=== PATIENT | female | born 2000 | race Caucasian/White ===

== ENCOUNTER 2025-02-02 14:21 | Outpatient (REF) | payer OTHER, SELFPAY ==
--- NOTE | ~2025-02-02 | US_ITS ---
CLINICAL HISTORY: AUB Ultrasound pelvis transabdominal and transvaginal. COMPARISON: None Technique: Real time sonographic imaging, including color-flow imaging, was performed by the black top roller. Multiple traveling sales representative static images were saved for review. FINDINGS: Anteverted uterus appears normal and measures 7.6 x 3.8 x 4.7 cm. No uterine fibroids identified. Endometrium: 8 mm, normal. Right ovary appears normal and measures 2.9 x 2.4 x 2.1 cm. Normal color Doppler. No right adnexal mass identified. Normal appearing physiologic follicles/cysts. Left ovary appears normal and measures 3.0 x 2.1 x 2.1 cm. Normal color Doppler. No left adnexal mass identified. No free fluid identified in the pelvic cul-de-sac. IMPRESSION: 1. No cause for patient's symptoms identified. No evidence of ovarian torsion. This document has been electronically signed by: Miko Dewey MD on 02/05/2025 14:45:58
--- OUTSIDE RECORDS SUMMARY | 2025-02-02 16:02 | XMS_ITS | Encounter Summary ---
Author Organization [facility] Address [address] [place] [address] Care Team Providers Care Carroter Name Role Phone Sha Goodrich PA-C Primary Care Provider Reason for Visit * Reason Comments Correspondence US order faxed Encounter Details Date Type Department Care Team (Late st Contact Info) Description 01/17/2025 Interim Notes [facility] [address] [place] [phone] Antonietta Naidu [place] [address] [place], [place] [id number] Social History Tobacco Use Types Packs/Day Years Used Date Smoking Tobacco: Never Passive Smoke Exposure: Never Smokeless Tobacco: Never Alcohol Use Standard Drinks/Week Comments Never 0 (1 standard drink = 0.6 oz pur e alcohol) Social Connections Answer Date Recorded Connectedness 1 10/17/2024 Financial Resource Strain Answer Date R ecorded Financial Resource Strain 1 2023 Stress Answer Date Recorded Stress 1 10/17/2024 Physical Activity Answer Date Recorded Physical Activity 0 08/01/2024 Food Insecurity Answer Date Recorded Food 1 10/17/2024 Transportation Needs Answer Date Record ed Transportation 1 10/17/2024 Housing Stability Answer Date Recorded Housing 1 10/17/2024 Safety and Environment Answer Date Darron rded Safety 1 10/17/2024 Utilities Answer Date Recorded Utilities 1 10/17/2024 Employment Answer Date Recorded Stress 0 08/11/2024 Comments Unknown Sex and Gender Information Value Date Recorded Sex Assigned at Female 06/13/2024 10:51 AM PDT Legal Sex Female 10:50 AM PDT Gender Identity Female 06/13/2024 10:51 AM PDT Sexual Orientation Straight 06/13/2024 10 :51 AM PDT documented as of this encounter Progress Notes * Antonietta Naidu MA - 01/17/2025 4:01 PM EST [facility] order has been faxed to [facility] [address] [place] [address] Confirmation received. documented in this encounter Plan of Treatment Not on file documented as of this encounter Visit Diagnoses Not on filedocumented in this encounter Additional Health Concerns Assessment Noted Time PHQ-9 Depression Total Score: 0 01/17/20 2:43 PM PST documented as of this encounter Care Teams Carroter Relationship Specialty Start Date End Date Sha Goodrich PA-C [address] [place] [address] PCP - General FAMILY MEDICINEPEREZ 10/17/24 documented as of this encounter
--- OUTSIDE RECORDS SUMMARY | 2025-02-02 16:03 | XMS_ITS | Encounter Summary ---
Author Organization [facility] Address [address] [place] [address] Care Team Providers Care Electrostatic Powder Coating Technician Name Role Phone Sha Goodrich PA-C Primary Care Provider Encounter Details Date Type Department Care Team (Late st Contact Info) Description 01/24/2025 Interim Notes [address] [phone] [place] [address] [place] [id number] Social History Tobacco Use Types Packs/Day Years [...] as of this encounter Progress Notes * Shanna Myers MA - 01/24/2025 2:50 PM EST u/s fax to [facility] [address] [place] [address] documented in this encounter Plan of Treatment Not on file documented as of this encounter Visit Diagnoses Not on filedocumented in this encounter Additional Health Concerns Assessment Noted Time PHQ-9 Depression Total Score: 0 01/17/20 25 2:43 PM PST documented as of this encounter Care Teams Electrostatic Powder Coating Technician Relationship Specialty Start Date End Date Sha Goodrich PA-C [address] [place] [address] PCP - General FAMILY MEDICINEPEREZ 10/17/24 documented as of this encounter
--- OUTSIDE RECORDS SUMMARY | 2025-02-02 16:03 | XMS_ITS | Clinical Summary ---
Author Organization [facility] Address [address] [place] [address] Care Team Providers Care Client Care Specialist Name Role Phone Sha Goodrich PA-C Primary Care Provider Source Comments PLEASE NOTE, if this patient is a minor, it may be UNLAWFUL to discuss sensitive information that is contained in these records (such as FAMILY PLANNING, MENTAL HEALTH or SUBSTANCE ABUSE) with the minor patient's parent or other person without the patient's specific authorization.[facility] Allergies No known active allergies Medications ammonium lactate (AMLACTIN) 12 % creamIndication s:Dry skin Apply topically as needed for dry skin 140 g 2 5 Active ascorbic acid (VITAMIN C) 500 mg tabletIndicatio ns:Abnormal iron saturation Take 1 Tablet by mouth once daily 90 Tablet 1 5 Active Active Problems No known active problems Encounters Date Type Department Care Team Description 01/24/2025 Interim Notes [address] [phone] Shanna Myers MA 01/17/2025 2:20 PM EST Office Visit [address] [phone] Sha Goodrich PA-C Al Sammaraee, Hussein Annual physical exam (Primary Dx); Visit for eye and vision exam; Encounter for fertility preservation counseling; Dry skin; Prediabetes; Abnormal iron saturation 01/17/2025 Interim Notes [address] [phone] Antonietta Naidu MA 01/01/2025 2:00 PM EST Office Visit [address] [phone] Goodrich, Rosimar, PA-C Alqaisy, Rufaida Dysuria (Primary Dx); Abnormal uterine bleeding from Last 3 Months Family History Medical History Relation Name Comments Diabetes Father 68 Hypertension Father 68 Stroke Father 68 Diabetes Maternal Grandfather Hypertension Maternal Grandfather Diabetes Maternal Grandmother Hypertension Maternal Grandmother Diabetes Mother 56 Hypertension Mother 56 Diabetes Paternal Grandfather Hypertension Paternal Grandfather Diabetes Paternal Grandmother Hypertension Paternal Grandmother Relation Name Status Comments Father 68 Maternal Grandfather Maternal Grandmother Mother 56 Alive Paternal Grandfather Paternal Grandmother Social History Tobacco Use Types Packs/Day Years Used Date Smoking Tobacco: Never Passive Smoke Exposure: Never Smokeless Tobacco: Never Tobacco Cessation:Counseling Given: No Alcohol Use Standard Drinks/Week Comments Never 0 [...] Orientation Straight 06/13/2024 10 :51 AM PDT Last Filed Vital Signs Vital Sign Reading Time Taken Comments Blood Pressure 104/66 01/17/2025 2:40 PM EST Pulse 67 01/17/2025 2:40 PM EST Temperature 36.8 ??C (98.2 ??F) 01/17/2025 2:40 PM ES T Respiratory Rate 16 01/17/2025 2:40 PM EST Oxygen Saturation 99% 01/17/2025 2:40 PM EST Inhaled Oxygen Concentration - - Weight 78 kg (172 lb) 01/17/2025 2:40 PM EST Height 160 cm (5' 3 ) 01/17/2025 2:40 PM EST Body Mass Index 30.47 01/17/2025 2:40 PM EST Plan of Treatment Health Maintenance Due Date Last Done Comments HPV Screening 1999 Pap + HPV 1999 Imm-Varicella (1 of 2 - 13+ 2-dose series) 2012 Imm-HPV (1 - 3-dose series) 2014 Imm-DTaP/Tdap/Td (1 - Tdap) 2018 Cervical Cancer Screening 2020 Pap Smear 2020 Imm-Hepatitis B (2 of 2 - Cp G 2-dose series) 09/04/2024 08/07/2024 Relationship Safety Screening/Counseling 10/17/2025 10/17/2024 Diabetes Screening 01/01/2026 01/01/2025, 01/01/2025 Annual Preventive Care Visit 01/17/2026 01/17/2025 Hypertension Screening (#1) 01/17/2026 Tobacco Screening 01/17/2026 01/17/2025 Lipid Screening 01/01/2028 01/01/2025 [id number] Completed 08/07/2024 Imm-Influenza Completed 08/07/2024 HIV Screening Completed 01/01/2025 Hepatitis C Screening Completed 01/01/2025 Alcohol and Drug Screen Completed 01/17/2025, 10/17 Depression Annual Screen Completed 01/17/2025 Cervical Ablation/Cold-Knife Conization Discontinued Cervical Cryotherapy Discontinued Colposcopy Discontinued Endometrial Biopsy Discontinued Excision/Leep Discontinued HPV Genotyping Discontinued Vaginal Pap Discontinued Vulvoscopy Discontinued Procedures Procedure Name Priority Date/Time Associated Diagnosis Comments IRON PANEL W TOTAL IRON BINDING CAPACITY Routine 01/17/2025 3:15 PM EST Low hemoglobin and low hematocrit VITAMIN B12 & FOLATE Routine 01/17/2025 3:15 PM EST Low hemoglobin and low hematocrit RPR (DIAGNOSIS) WITH REFLEX TO TITER AND CONFIRMATORY TESTING Routine 01/01/2025 2:23 PM EST RFLX - REFLEXIVE URINE CULTURE Routine 01/01/2025 2:23 PM EST URINALYSIS, COMPLETE W/REFLEX TO CULTURE Routine 01/01/2025 2:23 PM EST HEPATITIS C AB W/RFLX HCV RNA, QT, RT PCR Routine 01/01/2025 2:23 PM EST Routine screening for STI (sexually transmitted infection) HIV 1/2 AG & AB W/RFLX (4TH GEN) Routine 01/01/2025 2:23 PM EST Routine screening for STI (sexually transmitted infection) THYROID PANEL WITH TSH Routine 2:23 PM EST Abnormal uterine bleeding Family history of PCOS FSH AND LH Routine 01/01/2025 2:23 PM EST Family history of PCOS LIPID PANEL Routine 01/01/2025 2:23 PM EST Family history of diabetes mellitus HEMOGLOBIN GLYCOSYLATED A1C Routine 01/01/2025 2:23 PM EST Family history of diabetes mellitus COMPREHENSIVE METABOLIC PANEL Routine 01/01/2025 2:23 PM EST Family history of diabetes mellitus BLOOD COUNT COMPLETE AUTO&AUTO DIFRNTL WBC Routine 01/01/2025 2:23 PM EST Family history of diabetes mellitus from Last 3 Months Results * (ABNORMAL) IRON PANEL W TOTAL IRON BINDING CAPACITY (01/17/2025 3:15 PM EST) IRON, TOTAL 39(L) 40 - 190 mcg/dL [facility] IRON BINDING CAPACITY 404 250 - 450 mcg/dL (calc) [facility] % SATURATION 10(L) 16 - 45 % (calc) [facility] Blood Blood / Unknown 01/17/2025 3 :15 PM EST 01/17/2025 3:15 PM EST Narrative [facility] - 01/18/2025 4:56 AM EST FASTING:YES Rosimar Goodrich PA-C LAB - BLOOD DRAW Edited Resu lt - Final Performing Organization Address [facility] de Phone Number [facility] [address] [address], [facility] [address] [address] * VITAMIN B12 & FOLATE (01/17/2025 3:15 PM EST) VITAMIN B12 301 200 - 1,100 pg/mL [facility] Comment: Please Note: Although the reference range for vitamin B12 is 200-1100 pg/mL, it has been reported that between 5 and 10% of patients with values between 200 and 400 pg/mL may experience neuropsychiatric and hematologic abnormalities due to occult B12 deficiency; less than 1% of patients with values above 400 pg/mL will have symptoms. FOLATE, SERUM 17.2 5.5 ng/mL [facility] Comment: ? Reference Range ? Low: ? <3.4 ? Borderline: ?3.4-5.4 ? Normal: ?>5.4 Blood Blood / Unknown 01/17/2025 3 :15 PM EST 01/17/2025 3:15 PM EST Narrative [facility] - 01/18/2025 4:56 AM EST FASTING:YES us Sha Goodrich PA-C LAB - BLOOD DRAW Final Resul t Performing Organization Address [facility] Co de Phone Number [facility] [address] [address], [facility] [address] [place] [address] * RPR (DIAGNOSIS) WITH REFLEX TO TITER AND CONFIRMATORY TESTING (01/01/2025 2:23 PM EST) RPR (DX) W/REFL TITER AND CONFIRMATORY TESTING NON-REACT PRISCILA NON-REACT PRISCILA [facility] Comment: No laboratory evidence of syphilis. If recent exposure is suspected, submit a new sample in 2-4 weeks. 01/01/2025 2:23 PM EST 01/01/2025 2:24 PM EST Narrative [facility] - 01/02/2025 11:57 AM EST FASTING:NO us Sha Goodrich PA-C LAB - BLOOD DRAW Final Resul t Performing Organization Address [facility]/ZIP Co de Phone Number [facility] [address] [place] [address], [facility] [address] [address] * HEPATITIS C AB W/RFLX HCV RNA, QT, RT PCR (01/01/2025 2:23 PM EST) HEPATITIS C ANTIBODY NON-REACT PRISCILA NON-REACT PRISCILA [facility] Comment: HCV antibody was non-reactive. There is no laboratory evidence of HCV infection. In most cases, no further action is required. However, if recent HCV exposure is suspected, a test for HCV RNA (test code 19731) is suggested. For additional information please refer to http://education.Gendel/faq/NGD25r6 (This link is being provided for informational/ educational purposes only.) Blood Blood / Unknown 01/01/2025 2 :23 PM EST 01/01/2025 2:24 PM EST Narrative [facility] - 01/02/2025 11:57 AM EST FASTING:NO us Sha Goodrich PA-C LAB - BLOOD DRAW Edited Resu lt - Final Performing Organization Address City/[facility]/ZIP Co de Phone Number [facility] [address] [address], [employer] [address] [address] * HIV 1/2 AG & AB W/RFLX (4TH GEN) (01/01/2025 2:23 PM EST) HIV AG/AB, 4TH GEN NON-REAC TIVE NON-REAC TIVE [facility] Comment: HIV-1 antigen and HIV-1/HIV-2 antibodies were not detected. There is no laboratory evidence of HIV infection. PLEASE NOTE: This information has been disclosed to you from records whose confidentiality may be protected by state law. ??If your state requires such protection, then the state law prohibits you from making any further disclosure of the information without the specific written consent of the person to whom it pertains, or as otherwise permitted by law. A general authorization for the release of medical or other information is NOT sufficient for this purpose. ?? For additional information please refer to http://education.Gendel/faq/IHJ012 (This link is being provided for informational/ educational purposes only.) The performance of this assay has not been clinically validated in patients less than 2 years old. Blood Blood / Unknown 01/01/2025 2 :23 PM EST 01/01/2025 2:24 PM EST Narrative [facility] - 01/02/2025 11:57 AM EST FASTING:NO Sha Goodrich PA-C LAB - BLOOD DRAW Final Resul t [facility] [address] [place] [address], [facility] [address] [place] [phone] * FSH AND LH (01/01/2025 2:23 PM EST) Pathologist [facility] FSH 3.4 1.5 - 116.3 mIU/mL [facility] Comment: ?Reference Range ? Follicular Phase ? 2.5-10.2 ? Mid-cycle Peak ? 3.1-17.7 ? Luteal Phase ? 1.5- 9.1 ? Postmenopausal ? 23.0-116.3 ? LH 4.6 0.5 - 76.3 mIU/mL [facility] Comment: ? Reference Range ? Follicular Phase ??1.9-12.5 ? Mid-Cycle Peak ?8.7-76.3 ? Luteal Phase ?0.5-16.9 ? Postmenopausal ?10.0-54.7 Blood Blood / Unknown 01/01/2025 2 :23 PM EST 01/01/2025 2:24 PM EST Narrative [facility] - 01/02/2025 11:57 AM EST FASTING:NO us Sha Goodrich PA-C LAB - BLOOD DRAW Final Resul t [facility] [address] [place] [address], [facility] [address] [place] [phone] * THYROID PANEL WITH TSH (01/01/2025 2:23 PM EST) TSH 1.04 0.40 - 4.50 mIU/L [facility] Comment: ?Reference Range ?> or = 20 Years ??0.40-4.50 ? Ranges ?First trimester ?0.26-2.66 ?Second trimester ?? 0.55-2.73 ?Third trimester ?0.43-2.91 T-3 UPTAKE 26 22 - 35 % [employer] T-4 (THYROXINE), TOTAL 9.3 5.1 - 11.9 mcg/dL [facility] FREE T4 INDEX (T7) 2.4 1.4 - 3.8 [facility] Blood Blood / Unknown 01/01/2025 2 :23 PM EST 01/01/2025 2:24 PM EST Narrative [facility] - 01/02/2025 11:57 AM EST FASTING:NO Sha Goodrich PA-C LAB - BLOOD DRAW Final Resul t [facility] [address] [address], [facility] [address] [place] [address] * URINALYSIS, COMPLETE W/REFLEX TO CULTURE (01/01/2025 2:23 PM EST) COLOR YELLOW YELLOW [facility] APPEARANCE CLEAR CLEAR [facility] SPECIFIC GRAVITY 1.022 1.001 - 1.035 [facility] URINE PH 7.0 5.0 - 8.0 [facility] GLUCOSE NEGATIVE NEGATIVE [facility] BILIRUBIN NEGATIVE NEGATIVE [facility] KETONES NEGATIVE NEGATIVE [facility] OCCULT BLOOD NEGATIVE NEGATIVE [facility] URINE PROTEIN NEGATIVE NEGATIVE [facility] NITRITE NEGATIVE NEGATIVE [facility] LEUKOCYTE ESTERASE NEGATIVE NEGATIVE [facility] URINE LEUKOCYTES NONE SEEN < OR = 5 [facility] RBC 0-2 0 - 2 /HPF [facility] SQUAMOUS EPITHELIAL CELLS 0-5 < OR = 5 /HPF [facility] BACTERIA NONE SEEN NONE SEEN [facility] HYALINE CAST NONE SEEN NONE SEEN [facility] SEE NOTE See Below [facility] Comment: This urine was analyzed for the presence of WBC, RBC, bacteria, casts, and other formed elements. Only those elements seen were reported. 01/01/2025 2:23 PM EST 01/01/2025 2:24 PM EST Narrative [facility] - 01/02/2025 11:57 AM EST FASTING:NO Sha Goodrich PA-C LAB - NO BLOOD DRAW Edited [facility] Performing Organization Address [facility] de Phone Number [facility] [address] [address], [facility] [address] [address] * RFLX - REFLEXIVE URINE CULTURE (01/01/2025 2:23 PM EST) Pathologist [facility] REFLEXIVE URINE CULTURE See Below [facility] Comment:NO CULTURE INDICATED 01/01/2025 2:23 PM EST 01/01/2025 2:24 PM EST Narrative [facility] - 01/02/2025 11:57 AM EST FASTING:NO us Sha Goodrich PA-C LAB - NO BLOOD DRAW Edited [facility] Performing Organization Address [facility] Co de Phone Number [facility] [address] [address], [facility] [address] [phone] * (ABNORMAL) BLOOD COUNT COMPLETE AUTO&AUTO DIFRNTL WBC (01/01/2025 2:23 PM EST) [facility] WHITE BLOOD CELL COUNT 7.1 3.8 - 10.8 Thousand/ uL [facility] RED BLOOD CELL COUNT 4.53 3.80 - 5.10 Million/u L [facility] HEMOGLOBIN 10.3(L) 11.7 - 15.5 g/dL [facility] [place] [facility] HEMATOCRIT 33.5(L) 35.0 - 45.0 % [facility] [place] [facility] MCV 74.0(L) 80.0 - 100.0 fL [facility] MCH 22.7(L) 27.0 - 33.0 pg [facility] MCHC 30.7(L) 32.0 - 36.0 g/dL [facility] Comment: For adults, a slight decrease in the calculated MCHC value (in the range of 30 to 32 g/dL) is most likely not clinically significant; however, it should be interpreted with caution in correlation with other red cell parameters and the patient's clinical condition. RDW 14.7 11.0 - 15.0 % [facility] PLATELET COUNT 378 140 - 400 Thousand/ uL [facility] MPV 11.9 7.5 - 12.5 fL [facility] ABSOLUTE NEUTROPHILS 4,430 1,500 - 7,800 cells/uL [facility] ABSOLUTE LYMPHOCYTES 1,825 850 - 3,900 cells/uL [facility] ABSOLUTE MONOCYTES 646 200 - 950 cells/uL [facility] ABSOLUTE EOSINOPHILS 149 15 - 500 cells/uL [facility] ABSOLUTE BASOPHILS 50 0 - 200 cells/uL [facility] NEUTROPHILS PCT 62.4 % [facility] [employer] LYMPHOCYTES 25.7 % [facility] [employer] MONOCYTES 9.1 % [facility] [employer] EOSINOPHILS 2.1 % [facility] [employer] BASOPHILS 0.7 % [employer] DIAG [employer] Blood Blood / Unknown 01/01/2025 2 :23 PM EST 01/01/2025 2:24 PM EST Narrative [facility] - 01/02/2025 11:57 AM EST FASTING:NO us Sha Goodrich PA-C LAB - BLOOD DRAW Edited Resu lt - Final [facility] [address] [place] [id number], [facility] [address] [place] [phone] * (ABNORMAL) HEMOGLOBIN GLYCOSYLATED A1C (01/01/2025 2:23 PM EST) HEMOGLOBIN A1C 5.8(H) <5.7 % of total Hgb [facility] Comment: For someone without known diabetes, a hemoglobin A1c value between 5.7% and 6.4% is consistent with prediabetes and should be confirmed with a follow-up test. For someone with known diabetes, a value <7% indicates that their diabetes is well controlled. A1c targets should be individualized based on duration of diabetes, age, comorbid conditions, and other considerations. This assay result is consistent with an increased risk of diabetes. Currently, no consensus exists regarding use of hemoglobin A1c for diagnosis of diabetes for children. Blood Blood / Unknown 01/01/2025 2 :23 PM EST 01/01/2025 2:24 PM EST Narrative [facility] - 01/02/2025 11:57 AM EST FASTING:NO us Sha Goodrich PA-C LAB - BLOOD DRAW Edited Resu lt - Final [facility] [address] [address], [facility] [address] [place] [address] * (ABNORMAL) LIPID PANEL (01/01/2025 2:23 PM EST) CHOLESTEROL, TOTAL 177 <200 mg/dL [facility] HDL CHOLESTEROL 53 > OR = 50 mg/dL [facility] TRIGLYCERIDES 88 <150 mg/dL [facility] LDL-CHOLESTEROL 106(H) 99 mg/dL (calc) [facility] Comment: Reference range: <100 Desirable range <100 mg/dL for primary prevention; ?? <70 mg/dL for patients with CHD or diabetic patients with > or = 2 CHD risk factors. LDL-C is now calculated using the Serafin-Jackson calculation, which is a validated novel method providing better accuracy than the Friedewald equation in the estimation of LDL-C. Serafin ALLEN et al. CASSIE. 2013;310(19): 9762-8672 (http://education.[employer]/faq/VZM477) CHOL/HDLC RATIO 3.3 <5.0 (calc) [facility] NON-HDL CHOLESTEROL 124 <130 mg/dL (calc) [facility] Comment: For patients with diabetes plus 1 major ASCVD risk factor, treating to a non-HDL-C goal of <100 mg/dL (LDL-C of <70 mg/dL) is considered a therapeutic option. Blood Blood / Unknown 01/01/2025 2 :23 PM EST 01/01/2025 2:24 PM EST Narrative [facility] - 01/02/2025 11:57 AM EST FASTING:NO us Sha Goodrich PA-C LAB - BLOOD DRAW Final Resul t [facility] [address] [address], [facility] [address] [place] [address] * (ABNORMAL) COMPREHENSIVE METABOLIC PANEL (01/01/2025 2:23 PM EST) GLUCOSE 102 65 - 139 mg/dL [facility] Comment: ?Non-fasting reference interval UREA NITROGEN (BUN) 10 7 - 25 mg/dL [facility] CREATININE (blood) 0.54 0.50 - 0.96 mg/dL [facility] EGFR 131 > OR = 60 mL/min/1. 73m2 [facility] BUN/CREATININE RATIO SEE NOTE: [facility] Comment: ?? Not Reported: BUN and Creatinine are within ?? reference range. ? SODIUM 133(L) 135 - 146 mmol/L [facility] POTASSIUM 4.1 3.5 - 5.3 mmol/L [facility] CHLORIDE 100 98 - 110 mmol/L [facility] CARBON DIOXIDE 27 20 - 32 mmol/L [facility] CALCIUM 9.1 8.6 - 10.2 mg/dL [facility] PROTEIN, TOTAL 7.8 6.1 - 8.1 g/dL [facility] ALBUMIN 4.2 3.6 - 5.1 g/dL [facility] GLOBULIN 3.6 1.9 - 3.7 g/dL (calc) [facility] ALBUMIN/GLOBULI N RATIO 1.2 1.0 - 2.5 (calc) [facility] BILIRUBIN, TOTAL 0.3 0.2 - 1.2 mg/dL [facility] ALKALINE PHOSPHATASE 66 31 - 125 U/L [facility] AST 13 10 - 30 U/L [facility] ALT 11 6 - 29 U/L [facility] Blood Blood / Unknown 01/01/2025 2 :23 PM EST 01/01/2025 2:24 PM EST Narrative [facility] - 01/02/2025 11:57 AM EST FASTING:NO Sha Goodrich PA-C LAB - BLOOD DRAW Edited Resu lt - Final [facility] [address] [address], [facility] [address] [place] [address] from Last 3 Months Insurance [employer] Member Subscriber Plan / Payer (Ef fective 2024-Present) Name:Pat Gomes Relation to Subscriber:Self Name:Pat Gomes Payer ID:[id number] Type:Indemnity Address: [facility] [address] [place] [address] Care Teams Client Care Specialist Relationship Specialty Start Date End Date Sha Goodrich PA-C [address] [place] [address] PCP - General [facility]ILY MEDICINE[facility]EREZ 10/17/24
--- OUTSIDE RECORDS SUMMARY | 2025-02-02 16:03 | XMS_ITS | Encounter Summary ---
Author Organization [facility] Address [address] [place] [address] Care Team Providers Care Traffic Clerk Name Role Phone Sha Goodrich PA-C Primary Care Provider + [phone] Reason for Referral * Nutrition (Routine) - New Request Specialty Diagnoses / Procedures Referred By Elizabeth stallings Referred To Contact Nutrition Diagnoses Prediabetes Sha Goodrich PA-C [address] [place] [address] Phone: tel: fax: Luis A Murphy, [address] [place] [address] Phone: tel: fax: Referral ID Status Reason Start Date Expiration Date Visits Requested Visits Authorized [id number] New Request Specialty Services Required 01/17/2025 01/17/2026 1 1 * Gynecology (Routine) - Denied Specialty Diagnoses / Procedures Referred By Elizabeth stallings Referred To Contact Gynecology / Family Practice Diagnoses Encounter for fertility preservation counseling Sha Goodrich PA-C [address] [place] [address] Phone: tel: fax: [address] [address] Phone: tel: fax: Referral ID Status Reason Start Date Expiration Date V isits Requested Visits Authorized [id number] Denied Continuity of Care 01/17/2025 01/17/2026 1 0 Comments 24 yo F trying to conceive with male partner since March of last year. Would like to speak with someone about fertility. * Ophthalmology (Routine) - Pending Review Specialty Diagnoses / Procedures Referred By Elizabeth stallings Referred To Contact Diagnoses Visit for eye and vision exam Sha Goodrich PA-C [address] [place] [address] Phone: tel: fax: OTHER Referral ID Status Reason Start Date Expiration Date Visits Requested Visits Authorized [id number] Pending Review Specialty Services Required 01/17/2025 01/17/2026 1 1 Reason for Visit * Reason Comments Complete Physical Exam 24 y/o female cpe with Encounter Details Date Type Department Care Team ([facility] st Contact Info) Description 01/17/2025 2:20 PM EST Office Visit [address] [address] Sha Goodrich [facility]-C [address] [facility] 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 Health Maintenance: Patient's last menstrual period was 12/23/2024 (exact date). Ophthalmology: ref made Dentist: advised to make appt here Allergies: No Known Allergies There is no problem list on file for this patient. No past medical history on file. Past Surgical History: Procedure Laterality Date EYE SURGERY 2022 lazy eye Family History Problem Relation Name Age of Onset Hypertension Mother 56 Diabetes Mother 56 Hypertension Father 68 Stroke Father 68 Diabetes Father 68 Hypertension Maternal Grandmother Diabetes Maternal Grandmother Hypertension Maternal Grandfather Diabetes Maternal Grandfather Hypertension Paternal Grandmother Diabetes Paternal Grandmother Hypertension Paternal Grandfather Diabetes Paternal Grandfather No current outpatient medications on file prior to visit. No current facility-administered medications on file prior to visit. Review of Systems - Additional review of systems: See HPI, LOLITA remainders otherwise negative or non-contributory. OBJECTIVE: Vitals: 01/17/25 1440 BP: 104/66 Pulse: 67 Resp: 16 Temp: 98.2 ??F (36.8 ??C) TempSrc: Oral SpO2: 99% Weight: 172 lb (78 kg) Height: 5' 3 (1.6 m) Body mass index is 30.47 kg/m??. Physical Exam Constitutional: General: She is not in acute distress. HENT: Right Ear: Tympanic membrane, ear canal and external ear normal. Left Ear: Tympanic membrane, ear canal and external ear normal. Mouth/Throat: Mouth: Mucous membranes are moist. Pharynx: Oropharynx is clear. Eyes: Extraocular Movements: Extraocular movements intact. Conjunctiva/sclera: Conjunctivae normal. Pupils: Pupils are equal, round, and reactive to light. Neck: Thyroid: No thyroid mass, thyromegaly or thyroid tenderness. Cardiovascular: Rate and Rhythm: Normal rate and regular rhythm. Pulmonary: Effort: Pulmonary effort is normal. No respiratory distress. Breath sounds: Normal breath sounds. Abdominal: General: Bowel sounds are normal. Palpations: Abdomen is soft. There is no mass. Tenderness: There is no abdominal tenderness. Musculoskeletal: General: No swelling or tenderness. Cervical back: Neck supple. No tenderness. Lymphadenopathy: Cervical: No cervical adenopathy. Neurological: Mental Status: She is alert and oriented to person, place, and time. LABS: Office Visit on 10/17/2024 Component Date Value Ref Range Status WHITE BLOOD CELL COUNT 01/01/2025 7.1 3.8 - 10.8 Thousand/uL Final RED BLOOD CELL COUNT 01/01/2025 4.53 3.80 - 5.10 Million/uL Final HEMOGLOBIN 01/01/2025 10.3 (L) 11.7 - 15.5 g/dL Final HEMATOCRIT 01/01/2025 33.5 (L) 35.0 - 45.0 % Final MCV 01/01/2025 74.0 (L) 80.0 - 100.0 fL Final MCH 01/01/2025 22.7 (L) 27.0 - 33.0 pg Final MCHC 01/01/2025 30.7 (L) 32.0 - 36.0 g/dL Final RDW 01/01/2025 14.7 11.0 - 15.0 % Final PLATELET COUNT 01/01/2025 378 140 - 400 Thousand/uL Final MPV 01/01/2025 11.9 7.5 - 12.5 fL Final ABSOLUTE NEUTROPHILS 01/01/2025 4,430 1,500 - 7,800 cells/uL Final ABSOLUTE LYMPHOCYTES 01/01/2025 1,825 850 - 3,900 cells/uL Final ABSOLUTE MONOCYTES 01/01/2025 646 200 - 950 cells/uL Final ABSOLUTE EOSINOPHILS 01/01/2025 149 15 - 500 cells/uL Final ABSOLUTE BASOPHILS 01/01/2025 50 0 - 200 cells/uL Final NEUTROPHILS PCT 01/01/2025 62.4 % Final LYMPHOCYTES 01/01/2025 25.7 % Final MONOCYTES 01/01/2025 9.1 % Final EOSINOPHILS 01/01/2025 2.1 % Final BASOPHILS 01/01/2025 0.7 % Final GLUCOSE 01/01/2025 102 65 - 139 mg/dL Final UREA NITROGEN (BUN) 01/01/2025 10 7 - 25 mg/dL Final CREATININE (blood) 01/01/2025 0.54 0.50 - 0.96 mg/dL Final EGFR 01/01/2025 131 > OR = 60 mL/min/1.73m2 Final BUN/CREATININE RATIO 01/01/2025 SEE NOTE: 6 - 22 Final SODIUM 01/01/2025 133 (L) 135 - 146 mmol/L Final POTASSIUM 01/01/2025 4.1 3.5 - 5.3 mmol/L Final CHLORIDE 01/01/2025 100 98 - 110 mmol/L Final CARBON DIOXIDE 01/01/2025 27 20 - 32 mmol/L Final CALCIUM 01/01/2025 9.1 8.6 - 10.2 mg/dL Final PROTEIN, TOTAL 01/01/2025 7.8 6.1 - 8.1 g/dL Final ALBUMIN 01/01/2025 4.2 3.6 - 5.1 g/dL Final GLOBULIN 01/01/2025 3.6 1.9 - 3.7 g/dL (calc) Final ALBUMIN/GLOBULIN RATIO 01/01/2025 1.2 1.0 - 2.5 (calc) Final BILIRUBIN, TOTAL 01/01/2025 0.3 0.2 - 1.2 mg/dL Final ALKALINE PHOSPHATASE 01/01/2025 66 31 - 125 U/L Final AST 01/01/2025 13 10 - 30 U/L Final ALT 01/01/2025 11 6 - 29 U/L Final HEMOGLOBIN A1C 01/01/2025 5.8 (H) <5.7 % of total Hgb Final CHOLESTEROL, TOTAL 01/01/2025 177 <200 mg/dL Final HDL CHOLESTEROL 01/01/2025 53 > OR = 50 mg/dL Final TRIGLYCERIDES 01/01/2025 88 <150 mg/dL Final LDL-CHOLESTEROL 01/01/2025 106 (H) 99 mg/dL (calc) Final CHOL/HDLC RATIO 01/01/2025 3.3 <5.0 (calc) Final NON-HDL CHOLESTEROL 01/01/2025 124 <130 mg/dL (calc) Final CHLAMYDIA TRACHOMATIS RNA, TMA 10/24/2024 NOT DETECTED NOT DETECTED Final NEISSERIA GONORRHOEAE RNA, TMA 10/24/2024 NOT DETECTED NOT DETECTED Final FSH 01/01/2025 3.4 1.5 - 116.3 mIU/mL Final LH 01/01/2025 4.6 0.5 - 76.3 mIU/mL Final TSH 01/01/2025 1.04 0.40 - 4.50 mIU/L Final T-3 UPTAKE 01/01/2025 26 22 - 35 % Final T-4 (THYROXINE), TOTAL 01/01/2025 9.3 5.1 - 11.9 mcg/dL Final FREE T4 INDEX (T7) 01/01/2025 2.4 1.4 - 3.8 Final URINE HCG 10/17/2024 NEGATIVE NEGATIVE Final INTERNAL CONTROL 10/17/2024 PASS PASS Final HIV AG/AB, 4TH GEN 01/01/2025 NON-REACTIVE NON-REACTIVE Final HEPATITIS C ANTIBODY 01/01/2025 NON-REACTIVE NON-REACTIVE Final COLOR 01/01/2025 YELLOW YELLOW Final APPEARANCE 01/01/2025 CLEAR CLEAR Final SPECIFIC GRAVITY 01/01/2025 1.022 1.001 - 1.035 Final URINE PH 01/01/2025 7.0 5.0 - 8.0 Final GLUCOSE 01/01/2025 NEGATIVE NEGATIVE Final BILIRUBIN 01/01/2025 NEGATIVE NEGATIVE Final KETONES 01/01/2025 NEGATIVE NEGATIVE Final OCCULT BLOOD 01/01/2025 NEGATIVE NEGATIVE Final URINE PROTEIN 01/01/2025 NEGATIVE NEGATIVE Final NITRITE 01/01/2025 NEGATIVE NEGATIVE Final LEUKOCYTE ESTERASE 01/01/2025 NEGATIVE NEGATIVE Final URINE LEUKOCYTES 01/01/2025 NONE SEEN < OR = 5 Final RBC 01/01/2025 0-2 0 - 2 /HPF Final SQUAMOUS EPITHELIAL CELLS 01/01/2025 0-5 < OR = 5 /HPF Final BACTERIA 01/01/2025 NONE SEEN NONE SEEN Final HYALINE CAST 01/01/2025 NONE SEEN NONE SEEN Final SEE NOTE 01/01/2025 See Below Final REFLEXIVE URINE CULTURE 01/01/2025 See Below Final RPR (DX) W/REFL TITER AND CONFIRMA* 01/01/2025 NON-REACTIVE NON-REACTIVE Final Mental Health: 01/17/2025 2:43 PM Little interest or pleasure in doing things Not at all Feeling down, depressed or hopeless [include irritable if under 18] Not at all Trouble falling or staying asleep, or sleeping too much Not at all Feeling tired or having little energy Not at all Poor appetite or overeating Not at all Feeling bad about yourself - or that you are a failure or have let yourself or your family down Notat all Trouble concentrating on things like school work, reading or watching TV? Not at all Moving or speaking so slowly that other people could have noticed? Or the opposite - being so fidgety or restless that you have been moving around a lot more than usual Not at all Thoughts you would be better off or of hurting yourself in some way Not at all If you checked off any problems, how difficult have these problems made it for you to do your work,take care of things at home, or get along with other people? Not difficult at all PHQ-9 Total Score (Auto Calculated) 0 Depression Severity: None-minimal ASSESSMENT & PLAN: Pat Gomes is a 24 year old female patient, who was seen today for a Complete Physical Exam.Ref made to nutrition. Advised to call with any questions or cocnerns. Weight management:BMI follow up plan: The patient was counseled regarding nutrition and physical activity. Counseled for healthy lifestyle, dietary habits, physical activity and regular exercise.Encouraged to make healthier eating choices with less refined carbs and smaller portions along with regular exercise 3-4x/week for at least 20-30min. Avoid fried foods, oily foods and limit foods rich in dense calories. Increase fruits and vegetables. Pat was seen today for complete physical exam. Diagnoses and all orders for this visit: Annual physical exam Visit for eye and vision exam - REFERRAL TO OPHTHALMOLOGY Encounter for fertility preservation counseling - REFERRAL TO GYNECOLOGY Dry skin - ammonium lactate (AMLACTIN) 12 % cream; Apply topically as needed for dry skin Prediabetes - REFERRAL TO NUTRITION Return in about 4 months (around 05/17/2025) for pre-DM. documented in this encounter Miscellaneous Notes * Patient Instructions - Sha Goodrich PA-C - 01/17/2025 3:01 PM EST If you are not able to keep your appointment please call 24-48 hours before your appointment to cancel or reschedule. documented in this encounter Plan of Treatment Scheduled Orders Name Type Priority Associated Diagnoses Orde r Schedule IRON PANEL W TOTAL IRON BINDING CAPACITY Lab Routine Abnormal iron saturation Ordered: 01/29/2025 Scheduled Referrals Name Type Priority Associated Diagnoses Orde r Schedule REFERRAL TO OPHTHALMOLOGY Referral Routine Visit for eye and vision exam Ordered: 01/17/2025 REFERRAL TO GYNECOLOGY Referral Routine Encounter for fertility preservation counseling Ordered: 01/17/2025 REFERRAL TO NUTRITION Referral Routine Prediabetes Ordered: 01/17/2025 documented as of this encounter Visit Diagnoses Diagnosis Annual physical exam- Primary Routine general medical examination at a health care facility Visit for eye and vision exam Examination of eyes and vision Encounter for fertility preservation counseling Dry skin Other specified disease of sebaceous glands Prediabetes Other abnormal glucose Abnormal iron saturation Other abnormal blood chemistry documented in this encounter Additional Health Concerns Assessment Noted Time PHQ-9 Depression Total Score: 0 01/17/20 25 2:43 PM PST documented as of this encounter Care Teams Traffic Clerk Relationship Specialty Start Date End Date Sha Goodrich PA-C [address] [place] [address] PCP - General [facility] 10/17/24 documented as of this encounter
--- OUTSIDE RECORDS SUMMARY | 2025-02-02 16:03 | XMS_ITS | Encounter Summary ---
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 Role Phone Sha Goodrich PA-C Primary Care Provider Reason for Visit * Reason Comments Establish Care New pt , c/o random mookie , foot pain and irregular period Encounter Details Date Type Department Care Team (Late st Contact Info) Description 10/17/2024 1:40 PM EST Office Visit [address] [phone] Sha Goodrich PA-C [address] [place] [address] [phone] Kirk Bess [address] [place] [address] [phone] Abnormal uterine bleeding (Primary Dx); Family history of diabetes mellitus; Routine screening for STI (sexually transmitted infection); Immunization due; Family history of PCOS; Low hemoglobin and low hematocrit Social History Tobacco Use Types Packs/Day Years [...] Orientation Straight 06/13/2024 10 :51 AM PDT COVID-19 Exposure Response Date Recorded In the last 10 days, have yo u been in contact with someone who was confirmed or suspected to have Coronavirus/COVID-19? No / Unsure 10/17/2024 1:44 PM EST documented as of this encounter Last Filed Vital Signs Vital Sign Reading Time Taken Comments Blood Pressure 100/60 10/17/2024 1:55 PM EST Pulse 87 10/17/2024 1:55 PM EST Temperature 36.3 ??C (97.3 ??F) 10/17/2024 1:55 PM ES T Respiratory Rate 16 10/17/2024 1:55 PM EST Oxygen Saturation 99% 10/17/2024 1:55 PM EST Inhaled Oxygen Concentration - - Weight 71.7 kg (158 lb) 10/17/2024 1:55 PM EST Height 154.9 cm (5' 1 ) 10/17/2024 1:55 PM EST Body Mass Index 29.85 10/17/2024 1:55 PM EST documented in this encounter Progress Notes * Sha Goodrich PA-C - 01/14/2025 6:58 PM ESTAddended by: SHA GOODRICH on: 01/14/2025 06:58 PM Modules accepted: Orders * Sha Goodrich PA-C - 10/17/2024 2:08 PM EST Pat Gomes is a 24 year old female presenting for a new patient visit. Patient has been trying to have kids since end of February, worried because mom had PCOS and took 2 years to get . Explained it's only been a few months and it can take a while to become . Patient reports irregular periods with a lot of cramping. No hirsutism. Cramping and heaviness since becoming sexually active. Heaviness comes and goes. Cramping is always there, feels like someone is squeezing. Unable to bend it's very uncomfortable. Nov LMP, 7 days. States gets period every month but one month only had period for 2 days. Has done tests and they've been negative. Went to urgent care here and testing was all negative. She is getting periods early every month now since becoming sexually active. Current complaints: Chief Complaint Patient presents with [facility] Care New pt , c/o random mookie , foot pain and irregular period Last comprehensive health eval was n/a new to [place] in February Drug allergies: No Known Allergies Medical hx: There is no problem list on file for this patient. Current medications: No current outpatient medications on file prior to visit. No current facility-administered medications on file prior to visit. Specialists: none Surgical hx: Past Surgical History: Procedure Laterality Date EYE SURGERY 2022 lazy eye Hospitalizations within last year: for pelvic pain Sexual health: Social History Substance and Sexual Activity Sexual Activity Yes Partners: Male Comment: with Obstetrical hx: Obstetric History T0 P0 TAB0 SAB0 E0 M0 L0 Mental health: 10/17/2024 1:55 PM How many times in the past year have you had 4 or more drinks in a day? NONE How many times in the past year have you used a recreational drug or used a prescription medicationfor nonmedical reasons? NONE Did patient decline PHQ screening? No Little interest or pleasure in doing things Not at all Feeling down, depressed or hopeless [include irritable if under 18] Not at all PHQ2 Score 0 Little interest or pleasure in doing things [...] Score (Auto Calculated) 0 Depression Severity: None-minimal Family medical hx: Family History Problem Relation Name Age of Onset Hypertension Mother 56 Diabetes Mother 56 Hypertension Father 68 Stroke Father 68 Diabetes Father 68 Hypertension Maternal Grandmother Diabetes Maternal Grandmother Hypertension Maternal Grandfather Diabetes Maternal Grandfather Hypertension Paternal Grandmother Diabetes Paternal Grandmother Hypertension Paternal Grandfather Diabetes Paternal Grandfather Smoking hx: Tobacco History Tobacco Use Smoking Status Never Passive exposure: Never Smokeless Tobacco Never Alcohol hx: Social History Substance and Sexual Activity Alcohol Use Never Other drug hx: Social History Substance and Sexual Activity Drug Use Never Vitals: 10/17/2024 1:55 PM Weight 158 lb (71.7 kg) BP 100/60 Body mass index is 29.85 kg/m??. AP: Pat Gomes is a 24 year old female presenting for a new patient visit. Educated on menses, cycles and fertility expectations. Educated on ideal time to conceive and good practices to achieve conception. Educated on PCOS as well. Patient remains anxious about conception. Labs ordered, advisedfasting. US pelvis ordered as well. Advised to call with any questions or concerns. N93.9 Abnormal uterine bleeding (primary encounter diagnosis) Plan : US PELVIC COMPLETE & TRANSVAG THYROID PANEL WITH TSH HCG URINE MCKESSON (POCT) Z83.3 Family history of diabetes mellitus Plan : BLOOD COUNT COMPLETE AUTO&AUTO DIFRNTL WBC COMPREHENSIVE METABOLIC PANEL HEMOGLOBIN GLYCOSYLATED A1C LIPID PANEL Z11.3 Routine screening for STI (sexually transmitted infection) Plan : C TRACHOMATIS/N GONORRHOEAE RNA,TMA HIV 1/2 AG & AB W/RFLX (4TH GEN) HEPATITIS C AB W/RFLX HCV RNA, QT, RT PCR Z23 Immunization due -refused vaccines Z84.2 Family history of PCOS Plan : US PELVIC COMPLETE & TRANSVAG FSH AND LH THYROID PANEL WITH TSH No follow-ups on file. documented in this encounter Miscellaneous Notes * Result Encounter Note - Sha Goodrich PA-C - 01/29/2025 9:35 PM EST Please let pt know that iron saturation is low at 10%. Rx sent for iron and vitamin C to be taken together for better absorption. Thanks! * Result Encounter Note - Sha Goodrich PA-C - 01/14/2025 6:58 PM EST Please let pt know hemoglobin and hematocrit are a little low. Will check b12/folate/iron. Please have pt come in. A1C at 5.8. Prediabetic. Will monitor for now and work on lifestyle changes with healthy diet and exercise. FSH, LH, thyroid all normal. Please let pt know. Thanks! * Result Encounter Note - Ernestine Wells NP - 10/24/2024 11:15 AM EST C/trac/gn neg * Patient Instructions - Sha Goodrich PA-C - 10/17/2024 2:18 PM EST If you are not able to keep your appointment please call 24-48 hours before your appointment to cancel or reschedule. documented in this encounter Plan of Treatment Not on file documented as of this encounter Procedures Procedure Name Priority Date/Time Associated Diagnosis Comments IRON PANEL W TOTAL IRON BINDING CAPACITY Routine 01/17/2025 3:15 PM EST Low hemoglobin and low hematocrit VITAMIN B12 & FOLATE Routine 01/17/2025 3:15 PM EST Low hemoglobin and low hematocrit RPR (DIAGNOSIS) WITH REFLEX TO TITER AND CONFIRMATORY TESTING Routine 01/01/2025 2:23 PM EST HEPATITIS C AB W/RFLX HCV RNA, QT, RT PCR Routine 01/01/2025 2:23 PM EST Routine screening for STI (sexually transmitted infection) HIV 1/2 AG & AB W/RFLX (4TH GEN) Routine 01/01/2025 2:23 PM EST Routine screening for STI (sexually transmitted infection) FSH AND LH Routine 01/01/2025 2:23 PM EST Family history of PCOS THYROID PANEL WITH TSH Routine 2:23 PM EST Abnormal uterine bleeding Family history of PCOS URINALYSIS, COMPLETE W/REFLEX TO CULTURE Routine 01/01/2025 2:23 PM EST RFLX - REFLEXIVE URINE CULTURE Routine 01/01/2025 2:23 PM EST BLOOD COUNT COMPLETE AUTO&AUTO DIFRNTL WBC Routine 01/01/2025 2:23 PM EST Family history of diabetes mellitus HEMOGLOBIN GLYCOSYLATED A1C Routine 01/01/2025 2:23 PM EST Family history of diabetes mellitus LIPID PANEL Routine 01/01/2025 2:23 PM EST Family history of diabetes mellitus COMPREHENSIVE METABOLIC PANEL Routine 01/01/2025 2:23 PM EST Family history of diabetes mellitus C TRACHOMATIS/N GONORRHOEAE RNA,TMA Routine 10/24/2024 8:54 AM EST Routine screening for STI (sexually transmitted infection) HCG URINE MCKESSON (POCT) Routine 10/17/2024 2:56 PM EST Abnormal uterine bleeding documented in this encounter Results * (ABNORMAL) IRON PANEL W TOTAL IRON BINDING CAPACITY (01/17/2025 3:15 PM EST) [facility] IRON, TOTAL 39(L) 40 - 190 mcg/dL [facility] IRON BINDING CAPACITY 404 250 - 450 mcg/dL (calc) [facility] % SATURATION 10(L) 16 - 45 % (calc) [facility] Blood Blood / Unknown 01/17/2025 3 :15 PM EST 01/17/2025 3:15 PM EST Narrative [facility] - 01/18/2025 4:56 AM EST FASTING:YES Sha Goodrich PA-C LAB - BLOOD DRAW Edited Resu lt - Final [facility] [address] [address], [facility] [address] [place] [address] * VITAMIN B12 & FOLATE (01/17/2025 3:15 PM EST) VITAMIN B12 301 200 - 1,100 pg/mL [facility] Comment: Please Note: Although the reference range for vitamin B12 is 200-1100 pg/mL, it has been reported that between 5 and 10% of patients with values between 200 and 400 pg/mL may experience neuropsychiatric and hematologic abnormalities due to occult B12 deficiency; less than 1% of patients with values above 400 pg/mL will have symptoms. FOLATE, SERUM 17.2 5.5 ng/mL [facility] Comment: ? Reference Range ? Low: ? <3.4 ? Borderline: ?3.4-5.4 ? Normal: ?>5.4 Blood Blood / Unknown 01/17/2025 3 :15 PM EST 01/17/2025 3:15 PM EST Narrative [facility] - 01/18/2025 4:56 AM EST FASTING:YES [employer] ORTEZ[employer] LAB - BLOOD DRAW Final Resul t Performing Organization Address [facility]/ZIP Co de Phone Number [facility] [address] [address], [employer] [address] [address] * RPR (DIAGNOSIS) WITH REFLEX TO TITER AND CONFIRMATORY TESTING (01/01/2025 2:23 PM EST) RPR (DX) W/REFL TITER AND CONFIRMATORY TESTING NON-REACT PRISCILA NON-REACT PRISCILA [facility] Comment: No laboratory evidence of syphilis. If recent exposure is suspected, submit a new sample in 2-4 weeks. 01/01/2025 2:23 PM EST 01/01/2025 2:24 PM EST Narrative [employer] [facility] - 01/02/2025 11:57 AM EST FASTING:NO [employer]TE[employer] LAB - BLOOD DRAW Final Resul t Performing Organization Address [facility] Co de Phone Number [facility] [address] [address], [employer] [address] [address] * RFLX - REFLEXIVE URINE CULTURE (01/01/2025 2:23 PM EST) REFLEXIVE URINE CULTURE See Below [employer] [facility] Comment:NO CULTURE INDICATED 01/01/2025 2:23 PM EST 01/01/2025 2:24 PM EST Narrative [facility] - 01/02/2025 11:57 AM EST FASTING:NO [employer] TODD-C LAB - NO BLOOD DRAW Edited R esult - Final Performing Organization Address [facility]/ZIP Co de Phone Number [facility] [address] [address], [employer] [address] [phone] * URINALYSIS, COMPLETE W/REFLEX TO CULTURE (01/01/2025 2:23 PM EST) COLOR YELLOW YELLOW [facility] APPEARANCE CLEAR CLEAR [facility] SPECIFIC GRAVITY 1.022 1.001 - 1.035 [facility] URINE PH 7.0 5.0 - 8.0 [facility] GLUCOSE NEGATIVE NEGATIVE [facility] BILIRUBIN NEGATIVE NEGATIVE [facility] KETONES NEGATIVE NEGATIVE [facility] OCCULT BLOOD NEGATIVE NEGATIVE [facility] URINE PROTEIN NEGATIVE NEGATIVE [facility] NITRITE NEGATIVE NEGATIVE [facility] LEUKOCYTE ESTERASE NEGATIVE NEGATIVE [facility] URINE LEUKOCYTES NONE SEEN < OR = 5 [facility] RBC 0-2 0 - 2 /HPF [facility] SQUAMOUS EPITHELIAL CELLS 0-5 < OR = 5 /HPF [facility] BACTERIA NONE SEEN NONE SEEN [facility] HYALINE CAST NONE SEEN NONE SEEN [facility] SEE NOTE See Below [facility] Comment: This urine was analyzed for the presence of WBC, RBC, bacteria, casts, and other formed elements. Only those elements seen were reported. 01/01/2025 2:23 PM EST 01/01/2025 2:24 PM EST Narrative [facility] - 01/02/2025 11:57 AM EST FASTING:NO Sha Goodrich PA-C LAB - NO BLOOD DRAW Edited R esult - Final [facility] [address] [address], [facility] [address] [address] * HEPATITIS C AB W/RFLX HCV RNA, QT, RT PCR (01/01/2025 2:23 PM EST) HEPATITIS C ANTIBODY NON-REACT PRISCILA NON-REACT PRISCILA [facility] Comment: HCV antibody was non-reactive. There is no laboratory evidence of HCV infection. In most cases, no further action is required. However, if recent HCV exposure is suspected, a test for HCV RNA (test code 66584) is suggested. For additional information please refer to http://education.Globial/faq/LFW28v8 (This link is being provided for informational/ educational purposes only.) Blood Blood / Unknown 01/01/2025 2 :23 PM EST 01/01/2025 2:24 PM EST Narrative [employer] [facility] - 01/02/2025 11:57 AM EST FASTING:NO Hermanangie Goodrich PA-C LAB - BLOOD DRAW Edited Resu lt - Final Performing Organization Address [facility] de Phone Number [facility] [address] [address], [employer] [address] [address] * HIV 1/2 AG & AB W/RFLX (4TH GEN) (01/01/2025 2:23 PM EST) Pathologist [facility] HIV AG/AB, 4TH GEN NON-REAC TIVE NON-REAC TIVE [facility] Comment: HIV-1 antigen and HIV-1/HIV-2 antibodies were [...] ?? For additional information please refer to http://education.apprupt.H-umus/faq/HST635 (This link is being provided for informational/ educational purposes only.) The performance of this assay has not been clinically validated in patients less than 2 years old. Blood Blood / Unknown 01/01/2025 2 :23 PM EST 01/01/2025 2:24 PM EST Narrative [employer] [facility] - 01/02/2025 11:57 AM EST FASTING:NO us Sha Goodrich PA-C LAB - BLOOD DRAW Final Resul t Performing Organization Address [facility]/ZIP Co de Phone Number [facility] [address] [address], [place] [facility] [address] [place] [address] * THYROID PANEL WITH TSH (01/01/2025 2:23 PM EST) TSH 1.04 0.40 - 4.50 mIU/L [facility] Comment: ?Reference Range ?> or = 20 Years ??0.40-4.50 ? Ranges ?First trimester ?0.26-2.66 ?Second trimester ?? 0.55-2.73 ?Third trimester ?0.43-2.91 T-3 UPTAKE 26 22 - 35 % [employer] T-4 (THYROXINE), TOTAL 9.3 5.1 - 11.9 mcg/dL [facility] FREE T4 INDEX (T7) 2.4 1.4 - 3.8 [email or web address] Blood Blood / Unknown 01/01/2025 2 :23 PM EST 01/01/2025 2:24 PM EST Narrative [facility] - 01/02/2025 11:57 AM EST FASTING:NO us Sha Goodrich PA-C LAB - BLOOD DRAW Final Resul t [facility] [address] [address], [facility] [address] [place] [address] * FSH AND LH (01/01/2025 2:23 PM EST) Pathologist [facility] FSH 3.4 1.5 - 116.3 mIU/mL [facility] Comment: ?Reference Range ? Follicular Phase ? 2.5-10.2 ? Mid-cycle Peak ? 3.1-17.7 ? Luteal Phase ? 1.5- 9.1 ? Postmenopausal ? 23.0-116.3 ? LH 4.6 0.5 - 76.3 mIU/mL [facility] Comment: ? Reference Range ? Follicular Phase ??1.9-12.5 ? Mid-Cycle Peak ?8.7-76.3 ? Luteal Phase ?0.5-16.9 ? Postmenopausal ?10.0-54.7 Blood Blood / Unknown 01/01/2025 2 :23 PM EST 01/01/2025 2:24 PM EST Narrative [facility] - 01/02/2025 11:57 AM EST FASTING:NO Sha Goodrich PA-C LAB - BLOOD DRAW Final Resul t Performing Organization Address City/State/[facility] Co de Phone Number [facility] [address] [place] [address], [facility] [address] [place] [phone] * (ABNORMAL) LIPID PANEL (01/01/2025 2:23 PM EST) CHOLESTEROL, TOTAL 177 <200 mg/dL [facility] HDL CHOLESTEROL 53 > OR = 50 mg/dL [facility] TRIGLYCERIDES 88 <150 mg/dL [facility] LDL-CHOLESTEROL 106(H) 99 mg/dL (calc) [facility] Comment: Reference range: <100 Desirable range <100 mg/dL for primary prevention; ?? <70 mg/dL for patients with CHD or diabetic patients with > or = 2 CHD risk factors. LDL-C is now calculated using the Cristo calculation, which is a validated novel method providing better accuracy than the Friedewald equation in the estimation of LDL-C. Serafin ALLEN et al. CASSIE. 2013;310(19): 9854-5446 (http://education.AirXpanders/faq/COW494) CHOL/HDLC RATIO 3.3 <5.0 (calc) [facility] NON-HDL CHOLESTEROL 124 <130 mg/dL (calc) [facility] Comment: For patients with diabetes plus 1 major ASCVD risk factor, treating to a non-HDL-C goal of <100 mg/dL (LDL-C of <70 mg/dL) is considered a therapeutic option. Blood Blood / Unknown 01/01/2025 2 :23 PM EST 01/01/2025 2:24 PM EST Narrative [facility] - 01/02/2025 11:57 AM EST FASTING:NO Sha Goodrich PA-C LAB - BLOOD DRAW Final Resul t [facility] [address] [place] [address], [facility] [address] [place] [phone] * (ABNORMAL) HEMOGLOBIN GLYCOSYLATED A1C (01/01/2025 2:23 PM EST) HEMOGLOBIN A1C 5.8(H) <5.7 % of total Hgb [facility] Comment: For someone without known diabetes, a [...] PM EST 01/01/2025 2:24 PM EST Narrative [employer] [facility] - 01/02/2025 11:57 AM EST FASTING:NO Sha Goodrich PA-C LAB - BLOOD DRAW Edited Resu lt - Final [employer] [facility] [address] [address], [facility] [address] [place] [address] * (ABNORMAL) COMPREHENSIVE METABOLIC PANEL (01/01/2025 2:23 PM EST) GLUCOSE 102 65 - 139 mg/dL [facility] Comment: ?Non-fasting reference interval UREA NITROGEN (BUN) 10 7 - 25 mg/dL [facility] CREATININE (blood) 0.54 0.50 - 0.96 mg/dL [facility] EGFR 131 > OR = 60 mL/min/1. 73m2 [facility] BUN/CREATININE RATIO SEE NOTE: [employer] [facility] Comment: ?? Not Reported: BUN and Creatinine are within ?? reference range. ? SODIUM 133(L) 135 - 146 mmol/L [facility] POTASSIUM 4.1 3.5 - 5.3 mmol/L [facility] CHLORIDE 100 98 - 110 mmol/L [facility] CARBON DIOXIDE 27 20 - 32 mmol/L [facility] CALCIUM 9.1 8.6 - 10.2 mg/dL [facility] PROTEIN, TOTAL 7.8 6.1 - 8.1 g/dL [facility] ALBUMIN 4.2 3.6 - 5.1 g/dL [facility] GLOBULIN 3.6 1.9 - 3.7 g/dL (calc) [facility] ALBUMIN/GLOBULI N RATIO 1.2 1.0 - 2.5 (calc) [facility] BILIRUBIN, TOTAL 0.3 0.2 - 1.2 mg/dL [facility] ALKALINE PHOSPHATASE 66 31 - 125 U/L [employer] [facility] AST 13 10 - 30 U/L [facility] ALT 11 6 - 29 U/L [facility] Blood Blood / Unknown 01/01/2025 2 :23 PM EST 01/01/2025 2:24 PM EST Narrative [facility] - 01/02/2025 11:57 AM EST FASTING:NO Sha Goodrich PA-C LAB - BLOOD DRAW Edited Resu lt - Final [facility] [address] [address], [facility] [address] [place] [address] * (ABNORMAL) BLOOD COUNT COMPLETE AUTO&AUTO DIFRNTL WBC (01/01/2025 2:23 PM EST) WHITE BLOOD CELL COUNT 7.1 3.8 - 10.8 Thousand/ uL [facility] RED BLOOD CELL COUNT 4.53 3.80 - 5.10 Million/u L [facility] HEMOGLOBIN 10.3(L) 11.7 - 15.5 g/dL [facility] HEMATOCRIT 33.5(L) 35.0 - 45.0 % [facility] MCV 74.0(L) 80.0 - 100.0 fL [facility] MCH 22.7(L) 27.0 - 33.0 pg [facility] MCHC 30.7(L) 32.0 - 36.0 g/dL [employer] Comment: For adults, a slight decrease in the calculated MCHC value (in the range of 30 to 32 g/dL) is most likely not clinically significant; however, it should be interpreted with caution in correlation with other red cell parameters and the patient's clinical condition. RDW 14.7 11.0 - 15.0 % [facility] PLATELET COUNT 378 140 - 400 Thousand/ uL [facility] MPV 11.9 7.5 - 12.5 fL [facility] ABSOLUTE NEUTROPHILS 4,430 1,500 - 7,800 cells/uL [facility] ABSOLUTE LYMPHOCYTES 1,825 850 - 3,900 cells/uL [facility] ABSOLUTE MONOCYTES 646 200 - 950 cells/uL [facility] ABSOLUTE EOSINOPHILS 149 15 - 500 cells/uL [facility] ABSOLUTE BASOPHILS 50 0 - 200 cells/uL [facility] NEUTROPHILS PCT 62.4 % [facility] LYMPHOCYTES 25.7 % [facility] MONOCYTES 9.1 % [facility] EOSINOPHILS 2.1 % [facility] BASOPHILS 0.7 % [facility] Blood Blood / Unknown 01/01/2025 2 :23 PM EST 01/01/2025 2:24 PM EST Narrative [facility] - 01/02/2025 11:57 AM EST FASTING:NO Pippacindyangie Goodrich PA-C LAB - BLOOD DRAW Edited Resu lt - Final Performing Organization Address [facility] Co de Phone Number [facility] [address] [address], [facility] [address] [phone] * C TRACHOMATIS/N GONORRHOEAE RNA,TMA (10/24/2024 8:54 AM EST) Pathologist [facility] CHLAMYDIA TRACHOMATIS RNA, TMA NOT DETECTED NOT DETECTED [facility] NEISSERIA GONORRHOEAE RNA, TMA NOT DETECTED NOT DETECTED [facility] COMMENT [facility] Urine Urine specimen / Unknown 10/18/2024 7:00 AM EST Narrative [facility] - 10/24/2024 8:54 AM EST The analytical performance characteristics of this assay, when used to test SurePath(TM) specimens have been determined by [employer]. The modifications have not been cleared or approved by the FDA. This assay has been validated pursuant to the CLIA regulations and is used for clinical purposes. For additional information, please refer to https://education.Globial/faq/VSJ375 (This link is being provided for information/ educational purposes only.) Sha Goodrich PA-C LAB - NO BLOOD DRAW Edited R esult - Final Performing Organization Address [facility] Co de Phone Number [facility] [address] [address], [facility] [address] [phone] * HCG URINE MCKESSON (POCT) (10/17/2024 2:56 PM EST) URINE HCG NEGATIVE NEGATIVE [facility] PO[facility] INTERNAL CONTROL PASS PASS [facility] PO[facility] Urine Urine specimen / Unknown 10/17/2024 2:56 PM EST Sha Goodrich PA-C LAB - NO BLOOD DRAW Final Re sult [facility] documented in this encounter Visit Diagnoses Diagnosis Abnormal uterine bleeding- Primary Unspecified disorder of menstruation and other abnormal bleeding from female genital tract Family history of diabetes mellitus Routine screening for STI (sexually transmitted infection) Screening examination for venereal disease Immunization due Need for prophylactic vaccination and inoculation against unspecified single disease Family history of PCOS Family history of other genitourinary diseases Low hemoglobin and low hematocrit documented in this encounter Additional Health Concerns Assessment Noted Time PHQ-9 Depression Total Score: 0 10/17/20 1:55 PM PST documented as of this encounter 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
== END 2025-02-02 14:22 | disposition home or self-care (01) ==
LOC: HO.US 14:21
PROVIDERS: PCP Physician Assistant Medical; Visit Provider Physician Assistant Medical
DX: N93.9 Abnormal uterine and vaginal bleeding, unspecified (principal)
CPT/HCPCS: 76830; 76856

== ENCOUNTER → 2025-02-02 14:24 | Outpatient (BNV) | payer OTHER, SELFPAY | PROVIDERS: PCP Physician Assistant Medical; Visit Provider Radiology Diagnostic Radiology | DX: N93.9 Abnormal uterine and vaginal bleeding, unspecified (principal) | CPT/HCPCS: 76830; 76856 ==